=== PATIENT | male | born 2005 | race Caucasian/White ===

== ENCOUNTER → 2024-11-14 | Outpatient (CLI) | payer BC ==
--- NOTE | 2024-11-14 14:24 | US ---
EXAMINATION TYPE: US scrotum with doppler. DATE OF EXAM: 11/14/2024 COMPARISON: NONE CLINICAL INDICATION: Male, 19 years old with history of R10.2 PELVIC PERINEAL PAIN; TECHNIQUE: Grayscale, color Doppler and spectral Doppler imaging of the scrotum. FINDINGS: EXAM MEASUREMENTS: TESTICLES: Right Testicle: 4.6 x 2.6 x 2.9 cm Left Testicle: 4.8 x 2.2 x 3.1 cm EPIDIDYMIS HEAD: Right Epididymis: 1.2 cm Left Epididymis: 1.2 cm Doppler performed to assess for testicular vascularity; good bilateral color flow and spectral wavefo kar are seen. Presence of hydroceles: left - 3.2cm Presence of varicoceles: no IMPRESSION: Small left scrotal fluid collection or hydrocele otherwise unremarkable study. [facility], , 11/14/2024 2:21 PM
== END | disposition home or self-care (01) ==
LOC: RADUSWWP 13:23
PROVIDERS: ATTEND Family Medicine
DX: N43.2 Other hydrocele (principal)
CPT/HCPCS: 76870; 93975